=== PATIENT | male | born 1985 ===

== ENCOUNTER 2018-01-01 21:26 | Emergency (ER) | payer SELFPAY ==
[~2018-01-01] VITALS: Ht 172.7 cm; Wt 93.2 kg
[2018-01-01 21:46] VITALS: BP 129/62
== END 2018-01-01 22:59 | disposition left against medical advice (07) ==
LOC: EMS 21:28
DX: Z53.21 Procedure and treatment not carried out due to patient leaving prior to being seen by health care provider (principal)